=== PATIENT | male | born 1990 | race African-American/Black ===

== ENCOUNTER 2022-11-10 16:50 | Emergency (ER) | payer SELFPAY ==
[~2022-11-10] VITALS: Ht 172.7 cm; Wt 80.0 kg
[2022-11-10 16:55] VITALS: BP 133/87
[2022-11-10] MEDS ORDERED: FLUCONAZOLE 100MG TABLET PO ONE (17:45)
[2022-11-10] MEDS ORDERED: FLUC200T51 MT (19:01)
== END 2022-11-10 20:07 | disposition home or self-care (01) ==
LOC: ER 16:50
DX: B37.0 Candidal stomatitis (principal); J45.909 Unspecified asthma, uncomplicated; Z98.890 Other specified postprocedural states
CPT/HCPCS: 99283